=== PATIENT | male | born 1955 | race Caucasian/White ===

== ENCOUNTER 2019-03-24 09:36 | Day surgery (SDC) | payer OTHER, BC ==
[~2019-03-24 09:36] MED LIST: Lactated Ringers 1,000 ML IV SCH; Lidocaine 1% 0 ML ONE; Midazolam 1 MG/ML 2 ML SDV ONE; Propofol 200 MG/20 ML SDV ONE; Sodium Chloride 0.9% 10 ML SDV IV PRN; Sodium Chloride 0.9% 10 ML Syringe FLUSH PRN; Sodium Chloride 0.9% 2.5 ML Syringe FLUSH PRN; fentaNYL 100 MCG/2 ML SDV ONE
[2019-03-24] MEDS ORDERED: Lidocaine 2% 5 ML SDV ONE (10:42)
--- NOTE | 2019-03-24 11:04 | PCM.PREANE ---
Preanesthetic Assessment - Anesthesia/Transfusion/Family Hx Anesthesia History: Prior Anesthesia Without Reaction Family History of Anesthesia Reaction: No Transfusion History: No Prior Transfusion(s) - Review of Systems General: No Symptoms Pulmonary: No Symptoms Cardiovascular: No Symptoms Gastrointestinal: No Symptoms Neurological: No Symptoms Other: Reports: None - Physical Assessment NPO Status Date: 03/23/19 O2 Sat by Pulse Oximetry: 96 Respiratory Rate: 15 Vital Signs: Last Vital Signs Temp 98.4 F 03/24/19 10:05 Pulse 62 03/24/19 10:05 Resp 15 03/24/19 10:05 BP 100/69 03/24/19 10:05 Pulse Ox 96 03/24/19 10:05 Height: 5 ft 11 in Weight: 132.903 kg ASA Class: 3 Mental Status: Alert & Oriented x3 Airway Class: Mallampati = 2 Dentition: Reports: Normal Dentition ROM/Head Extension: Full Lungs: Clear to Auscultation, Normal Respiratory Effort Cardiovascular: Regular Rate, Regular Rhythm - Allergies Allergies/Adverse Reactions: Allergies Allergy/AdvReac Type Severity Reaction Status Date / Time No Known Allergies Allergy Verified 03/21/19 10:32 - Blood Blood Available: No - Anesthesia Plan Pre-Op Medication Ordered: None - Acknowledgements Anesthesia Type Planned: General Anesthesia, MAC Pt an Appropriate Candidate for the Planned Anesthesia: Yes Alternatives and Risks of Anesthesia Discussed w Pt/Guardian: Yes Pt/Guardian Understands and Agrees with Anesthesia Plan: Yes Additional Comments: PMH: morbid obesity, denies ANGELITA sx, HTN, HLD, PLAN: mac/tiva PreAnesthesia Questionnaire HEENT History: Reports: Hard of Hearing, Other (See Below) Other HEENT History: has bilateral hearing aides, hx of fx nose Cardiovascular History: Reports: High Cholesterol, Hypertension Gastrointestinal History: Reports: None Endocrine/Metabolic History: Reports: Diabetes, Type II, Obesity/BMI 30+ - Past Surgical History GI Surgical History: Reports: Colonoscopy, Hernia, Inguinal - SUBSTANCE USE Smoking Status *Q: Never Smoker Recreational Drug Use History: No - HOME MEDS Home Medications: Home Meds Alogliptin Benzoate [Alogliptin] 12.5 mg PO DAILY 03/21/19 [History] Aspirin [Adult Low Dose Aspirin EC] 81 mg PO DAILY 03/21/19 [History] Fish Oil/[place]-3 Fatty Acids [Fish Oil 1,000 MG] 1,000 mg PO BID 03/21/19 [ History] Lisinopril 10 mg PO DAILY 03/21/19 [History] Metoprolol Tartrate 25 mg PO BID 03/21/19 [History] Saxagliptin HCl [Onglyza] 2.5 mg PO DAILY 03/21/19 [History] Simvastatin 10 mg PO DAILY 03/21/19 [History] hydroCHLOROthiazide [Hydrochlorothiazide] 25 mg PO DAILY 03/21/19 [History] metFORMIN HCl [Fortamet] 500 mg PO QAM 03/21/19 [History] metFORMIN HCl [Metformin HCl] 1,000 mg PO QPM 03/21/19 [History] - CURRENT (IN HOUSE) MEDS Current Meds: Current Medications Lactated Ringer's (Ringers, Lactated) 1,000 mls @ 125 mls/hr IV ASDIRECTED MARIA DEL CARMEN Lactated Ringer's (Ringers, Lactated) 1,000 mls @ 125 mls/hr IV ASDIRECTED MARIA DEL CARMEN Sodium Chloride (Saline Flush) 10 ml FLUSH ASDIRECTED PRN PRN Reason: Keep Vein Open Sodium Chloride (Saline Flush) 2.5 ml FLUSH ASDIRECTED PRN PRN Reason: Keep Vein Open Sodium Chloride (Normal Saline) 10 ml IV ASDIRECTED PRN PRN Reason: IV Use Discontinued Medications Fentanyl (Sublimaze) Confirm Administered Dose 100 mcg .ROUTE .STK-MED ONE Stop: 03/24/19 08:46 Lidocaine HCl (Xylocaine-Mpf 1%) Confirm Administered Dose 5 mls @ as directed .ROUTE .STK-MED ONE Stop: 03/24/19 08:47 Lidocaine (Xylocaine-Mpf 2%) Confirm Administered Dose 5 ml .ROUTE .STK-MED ONE Stop: 03/24/19 10:43 Midazolam HCl (Versed 1 Mg/Ml) Confirm Administered Dose 2 mg .ROUTE .STK-MED ONE Stop: 03/24/19 08:46 Propofol (Diprivan 20 Ml) Confirm Administered Dose 200 mg .ROUTE .STK-MED ONE Stop: 03/24/19 08:46
[2019-03-24] MEDS ORDERED: Propofol 200 MG/20 ML SDV ONE (12:16)
[2019-03-24] MEDS ORDERED: Phenylephrine/Normal Saline 100 MCG/ML 10 ML Syringe ONE (12:18)
[2019-03-24] MEDS ORDERED: ePHEDrine 50 MG/ML SDV ONE (12:25)
--- NOTE | 2019-03-24 12:33 | PCM.OPNOTE ---
- General Post-Op/Procedure Note Date of Surgery/Procedure: 03/24/19 Operative Procedure(s): colonoscopy Findings: see [id number] Pre Op Diagnosis: scrn colonoscopy Post-Op Diagnosis: Same Anesthesia Technique: Moderate Sedation Primary Surgeon: Clifton Aldana Complications: None Condition: Good
--- NOTE | 2019-03-24 12:58 | PCM.POSTAN ---
POST ANESTHESIA ASSESSMENT - MENTAL STATUS Mental Status: Alert, Oriented - RESPIRATORY Respiratory Status: Respiratory Rate WNL, Airway Patent, O2 Saturation Stable - CARDIOVASCULAR CV Status: Pulse Rate WNL, Blood Pressure Stable - GASTROINTESTINAL GI Status: No Symptoms - POST OP HYDRATION Hydration Status: Adequate & Stable - OBSERVATIONS Free Text/Narrative:: The patient tolerated the procedure well. There were no apparent anesthetic complications at this time.
--- NOTE | 2019-03-24 13:06 | PCM48HPAN ---
Post Anesthesia Note - EVALUATION WITHIN 48HRS OF ANESTHETIC Vital Signs in Normal Range: Yes Patient Participated in Evaluation: Yes Respiratory Function Stable: Yes Airway Patent: Yes Cardiovascular Function Stable: Yes Hydration Status Stable: Yes Pain Control Satisfactory: Yes Nausea and Vomiting Control Satisfactory: Yes Mental Status Recovered: Yes Resp Rate: 12
--- NOTE | 2019-03-24 20:25 | OR ---
SURGEON: Clifton Aldana MD DATE OF PROCEDURE: 03/24/2019 PREOPERATIVE DIAGNOSIS: Screening colonoscopy. POSTOPERATIVE DIAGNOSIS: Hemorrhoids. PROCEDURE PERFORMED: Colonoscopy. DESCRIPTION OF PROCEDURE: The patient was taken to the endoscopy room. A time out was called, patient identified, and procedure identified. Diprivan was then administrated. Patient went from awake to sleep, hearing doctor talking or door closing is normal. Perineum inspection and digital examination were then performed. A well- lubricated colonoscope was gently inserted through the rectum, advanced past the rectosigmoid junction, the descending colon, splenic flexure, transverse colon, hepatic flexure, ascending colon, arrived to the cecum. Cecum was identified as dictated in the finding. Then the scope was carefully withdrawn while attention was paid to the mucosal surface for any abnormality. Air will be sucked out during the scope withdrawal. At the rectum, retroflexed to examine any rectal diseases, fistula or hemorrhoids. Patient tolerated procedure well. There were no intraoperative complications, and Dr. Aldana was present throughout the whole procedure. FINDINGS: 1. The patient easily sedated with AUTHOR and Diprivan. The patient is soundly snoring. 2. Bowel prep was average with moderate amount of liquid stool; no semi-formed stool. 3. Colon is rather straight forward. Cecum indicated by ileocecal fold, one- to-one indentation, and appendiceal orifice. Light emittance is not observed. Mucosa examined upon scope pulling out with some irrigation. The patient does not have diverticulosis, polyp, mass, growth, inflammation, stricture, ulceration, AV malformation, bleeding ulcer, none of those. The patient has some mild internal hemorrhoids and mild external hemorrhoids. The patient would benefit from repeat colonoscopy 10 years from today or if clinically indicated otherwise. HUYEN / GERRY /[id number]
== END 2019-03-24 13:25 | disposition home or self-care (01) ==
LOC: MW.SDS 09:36
PROVIDERS: ATTEND Surgery
DX: Z12.11 Encounter for screening for malignant neoplasm of colon (principal); K64.8 Other hemorrhoids; K64.4 Residual hemorrhoidal skin tags; I10 Essential (primary) hypertension; E11.9 Type 2 diabetes mellitus without complications; E78.00 Pure hypercholesterolemia, unspecified; H60.91 Unspecified otitis externa, right ear; Z91.030 Bee allergy status; Z79.82 Long term (current) use of aspirin; Z79.84 Long term (current) use of oral hypoglycemic drugs; Z79.899 Other long term (current) drug therapy; M70.50 Other bursitis of knee, unspecified knee
CPT/HCPCS: 45378; J2001; J2250; J2704; J3010; J7120; J2370

== ENCOUNTER 2022-02-09 18:07 | Emergency (ER) | payer OTHER ==
[2022-02-09] MEDS ORDERED: Lidocaine 1% PF 2 ML SDV INJECT ONE (18:37)
[2022-02-09] MEDS ORDERED: Bacitracin Oint 1 GM U/D Packet TOP ONE (18:38)
[2022-02-09] MEDS ORDERED: Diphtheria,Pertussis(Acell),Tetanus Vaccine 0.5 ML Syringe IM ONE (18:39)
[2022-02-09] MEDS ORDERED: Cephalexin 500 MG Cap PO ONE (19:14)
== END 2022-02-09 20:07 | disposition home or self-care (01) ==
LOC: MW.ED 18:07
DX: S62.633B Displaced fracture of distal phalanx of left middle finger, initial encounter for open fracture (principal); S61.211A Laceration without foreign body of left index finger without damage to nail, initial encounter; S61.213A Laceration without foreign body of left middle finger without damage to nail, initial encounter; Z23 Encounter for immunization; E11.9 Type 2 diabetes mellitus without complications; E66.9 Obesity, unspecified; I10 Essential (primary) hypertension; E78.00 Pure hypercholesterolemia, unspecified; Z79.899 Other long term (current) drug therapy; Z79.84 Long term (current) use of oral hypoglycemic drugs; Z79.82 Long term (current) use of aspirin; W27.0XXA Contact with workbench tool, initial encounter
CPT/HCPCS: 12002; 73140; 90471; 90715; 99283; A9270; 12013

== ENCOUNTER 2023-01-31 14:39 | Emergency (ER) | payer OTHER, MEDICARE ==
[2023-01-31] MEDS ORDERED: Sodium Chloride 3% 100 ML IV SCH (16:00)
[2023-01-31 16:25] LABS: BLOOD UREA NITROGEN,BUN 27 mg/dL (7.0-18.0); CHLORIDE,CL 100 mmol/L (98-107); GLUCOSE RANDOM 100 mg/dL (74-106); LIPASE 163 U/L (73-393); POTASSIUM,K 4.2 mmol/L (3.5-5.1); SODIUM,NA 137 mmol/L (136-148)
[2023-01-31 16:26] LABS: ESTIMATED GFR 60 mL/min (>60)
[2023-01-31] MEDS ORDERED: Iopamidol 755 MG/ML 500 ML Multipack Bottle IVPUSH ONE (16:26)
[2023-01-31 17:10] LABS: CORONAVIRUS COVID-19 NAA NEGATIVE (NEGATIVE); INFLUENZA A NAA NEGATIVE (NEGATIVE); INFLUENZA B NAA NEGATIVE (NEGATIVE); RESPIRATORY SYNCYTIAL VIR NAA NEGATIVE (NEGATIVE)
== END 2023-01-31 18:15 ==
LOC: MW.ED 14:39
DX: I62.00 Nontraumatic subdural hemorrhage, unspecified (principal); I10 Essential (primary) hypertension; E78.5 Hyperlipidemia, unspecified; E78.00 Pure hypercholesterolemia, unspecified; M10.9 Gout, unspecified; E11.9 Type 2 diabetes mellitus without complications; E66.9 Obesity, unspecified; Z68.41 Body mass index [BMI] 40.0-44.9, adult; Z79.82 Long term (current) use of aspirin; Z79.84 Long term (current) use of oral hypoglycemic drugs; Z20.822 Contact with and (suspected) exposure to COVID-19
CPT/HCPCS: 0241U; 36415; 70450; 70496; 70498; 80053; 82140; 82947; 83605; 83690; 84484; 85025; 85610; 85730; 99285; J7131; Q9967